=== PATIENT | male | born 1970 | race Caucasian/White ===

== ENCOUNTER 2025-05-07 08:14 | Outpatient (AMB) | payer BC, SELFPAY ==
--- NOTE | 2025-05-07 08:20 | ORTHONT_ITS ---
Vital signs 05/07/25 08:29 Height 1.7 m Height Method Measured Weight 97.607 kg Weight Measurement Method Standing Scale BMI 33.7 BP 138/78 H Blood Pressure Source Automatic Cuff Blood Pressure Location Right Upper Arm Position Sitting Respiration 18 Pulse 91 Pulse Source Monitor Temp 97.1 F Temp Source Temporal Artery Scan Pulse Oximetry (%) 97 Oxygen Delivery Method Room Air Med/Allergies Allergies & Medications Allergies latex Allergy (Severe, Verified 05/07/25 08:40) Rash Medication Reconciliation Pantoprazole Sod * (PROTONIX *) 20 mg PO QDAY ##0 08/02/17 [History Confirmed 05/07/25] sitagliptin phosphate 100 mg tablet (Januvia) 100 mg PO QDAY #0 tabs 08/02/17 [History Confirmed 05/07/25] meloxicam 7.5 mg tablet 7.5 mg PO QDAY #45 tabs 05/07/25 [Rx] Exam Exam Patient is in no acute distress and is cooperative with the examination today. Breathing is nonlabored. In no respiratory distress. Bilateral extremities were evaluated and demonstrates sensation intact to light touch. Palpable pedal pulses are present. No significant edema is present. Bilateral hips were examined. The patient has no pain with log roll of the hips. Internal rotation to 30 degrees and external rotation to 30 degrees is painless. Negative FADIR. The left knee was examined. The left knee is in varus alignment. Range of motion from 0-115 degrees. Knee is stable to varus and valgus as well as AP translation with <5mm. Patient has a negative McMurrays. There is no pain with patellofemoral compression and no crepitus noted. The knee is tender to palpation medially. The right knee was also examined. The right knee is in varus alignment. Range of motion from 0-120 degrees. Knee is stable to varus and valgus as well as AP translation with <5mm. Patient has a negative McMurrays. There is no pain with patellofemoral compression and no crepitus noted. The knee is tender to palpation medially. Assessment and Plan Problem List (1) Degenerative arthritis of knee, bilateral: Status: Acute Plan: Patient is a pleasant 54-year-old male with bilateral knee pain and bilateral knee arthritis. We discussed different treatment options.. I would need to see weightbearing x-rays. We discussed anti-inflammatories and injections. We will get weightbearing x-rays and see him back. Office Procedures GNS Level of Care Nursing/Assessment Patient Status: Initial/New Patient Nursing Assessment/Reassesment: Medication Reconciliation, Update PMH in EMR and Vital Signs Coordination of Care: Complex Care and Chronic Disease 1-5, Education Complex Pt/Fam, Consent,records obtained, informed consent and Staff clarify orders Special Needs: Language special needs New Patient Charge New Patient Point Assignment: 1089 New Patient Point Charge: DIGITAL MEDIA PLANNER Level 3 ([id number]) MA Intake Visit Data Collection New Patient or Established: New Patient (never been to [facility]) Reason for Visit:: LEFT KNEE OSTEOARTHRITIS Seen by Clinical Staff ONLY (RN/MA): No Automatic Furnace Operator Required: No PCP or OBGYN visit in last 3 months: Yes Hx Now: No Do You Feel Safe at Home: Yes Authorities Contacted: N/A Questionairres Past Medical History Past Medical History Have you ever been diagnosed with any of the following: Cardiology Problems Congestive Heart Failure: No Respiratory Problems Chronic Obstructive Pulmonary Disease (COPD): No Stomache/Intestinal Problems Hiatal Hernia: Yes Gastroesophageal Reflux Disease: Yes Genital/Urinary Problems Renal Disease: No Endocrine Problems Diabetes Mellitus Type 1: No Diabetes Mellitus Type 2: Yes Subjective Visit Visit for: new patient and knee Immunization / Flu Flu Vaccine in the Last 12 Months: Yes Flu Vaccine Exclusion Criteria: Already Received History of Present Illness Chief complaint: LEFT KNEE OSTEOARTHRITIS Manpreet is a pleasant 54-year-old male with left knee pain that has been ongoing for quite a while. It has been ongoing for several years. The left knee pain is worse than the right. He works as a transportation maintenance specialist. He has had over 6 injections in the past. He does not have any weightbearing x-rays. He has tried ibuprofen in the past Personal History Occupation: MAINTENANCE Red flag PMH: none BMI Counceling provided: Yes Pain Pain level (0-10): 7 Pain location: outside (lateral) Pain quality: dull and aching Pain timing: night Ambulatory data Ambulatory device: none Treatments Number of previous injections: 6 Improvement with previous injections: Yes Number of Physical Therapy sessions: 1 Improvement with PT: No Improvement with NSAIDS: no Review of Systems Review of Systems: All systems negative unless otherwise noted in HPI.
[2025-05-07 08:29] VITALS: BP 138/78; PULSE 91; RESP 18; TEMP 36.2; O2SAT 97; BMI 33.7
--- NOTE | 2025-05-07 08:42 | XR_ITS ---
Examination: Bilateral knees 2 views Right lateral knee left lateral knee 2 views Bilateral axial knees single view TECHNIQUE: Bilateral AP knees standing single view, bilateral PA knees standing single view flexion Standing right lateral knee left lateral knee 2 views Bilateral axial knees single view total 5 views Date and time: May 07, 2025 0902 hours INDICATIONS: Bilateral knee pain beginning 3 years ago. FINDINGS: Moderate osteopenia. Moderate narrowing medial joint space right knee Moderate to advanced medial joint space left knee No fractures IMPRESSION: Moderate narrowing medial joint space right knee Moderate to advanced medial joint space left knee
== END 2025-05-07 08:50 | disposition home or self-care (01) ==
PROVIDERS: PCP Nurse Practitioner Family; Referring Provider Nurse Practitioner Family; Supervising Provider Orthopaedic Surgery Adult Reconstructive Orthopaedic Surgery; Visit Provider Orthopaedic Surgery Adult Reconstructive Orthopaedic Surgery
DX: M17.0 Bilateral primary osteoarthritis of knee (principal); M25.562 Pain in left knee; M25.561 Pain in right knee; E11.9 Type 2 diabetes mellitus without complications; K21.9 Gastro-esophageal reflux disease without esophagitis
CPT/HCPCS: 73564; 99203; G0463

== ENCOUNTER 2025-05-21 10:01 | Outpatient (AMB) | payer BC, SELFPAY ==
--- NOTE | 2025-05-21 10:08 | ORTHONT_ITS ---
Vital signs 05/21/25 10:11 Height 1.7 m Height Method Stated Weight 100.386 kg Weight Measurement Method Standing Scale BMI 34.7 BP 135/82 H Blood Pressure Source Automatic Cuff Blood Pressure Location Left Upper Arm Position Sitting Respiration 19 Pulse 90 Pulse Source Monitor Temp 97.7 F Temp Source Temporal Artery Scan Pulse Oximetry (%) 95 Oxygen Delivery Method Room Air Med/Allergies Allergies & Medications Allergies latex Allergy (Severe, Verified 05/21/25 10:12) Rash Medication Reconciliation Pantoprazole Sod * (PROTONIX *) 20 mg PO QDAY ##0 08/02/17 [History Confirmed 05/21/25] sitagliptin phosphate 100 mg tablet (Januvia) 100 mg PO QDAY #0 tabs 08/02/17 [History Confirmed 05/21/25] meloxicam 7.5 mg tablet 7.5 mg PO QDAY #45 tabs 05/07/25 [Rx Confirmed 05/21/25] Exam Exam Patient is in no acute distress and is cooperative with the examination today. Breathing is nonlabored. In no respiratory distress. Bilateral extremities were evaluated and demonstrates sensation intact to light touch. Palpable pedal pulses are present. No significant edema is present. Bilateral hips were examined. The patient has no pain with log roll of the hips. Internal rotation to 30 degrees and external rotation to 30 degrees is painless. Negative FADIR. The left knee was examined. The left knee is in varus alignment. Range of motion from 0-115 degrees. Knee is stable to varus and valgus as well as AP translation with <5mm. Patient has a negative McMurrays. There is no pain with patellofemoral compression and no crepitus noted. The knee is tender to palpation medially. The right knee was also examined. The right knee is in varus alignment. Range of motion from 0-120 degrees. Knee is stable to varus and valgus as well as AP translation with <5mm. Patient has a negative McMurrays. There is no pain with patellofemoral compression and no crepitus noted. The knee is tender to palpation medially. Weightbearing x-rays demonstrate complete joint space narrowing of the medial compartment of the left knee. There is moderate arthritis of the right Assessment and Plan Problem List (1) Degenerative arthritis of knee, bilateral: Status: Acute Plan: Patient is a pleasant 54-year-old male with bilateral knee pain and bilateral knee arthritis. We discussed different treatment options. He had good relief with cortisone injections in the left knee's. I did a left knee injection today. Recommend knee cortisone injection as patient would like to proceed with conservative treatment at this time. The risks and benefits of the procedure were reviewed with the patient and patient gave verbal consent to continue with the procedure. Procedure: performed by Dr. Orellana Using sterile technique the left knee was thoroughly prepped with alcohol, and approximately 1 cc of Depo-Medrol 80mg/mL and 4 cc of 0.2% ropivacaine was injected without resistance into the medial tibial femoral joint space. The patient tolerated the procedure. Office Procedures GNS Level of Care Nursing/Assessment Patient Status: Established Patient Nursing Assessment/Reassesment: Medication Reconciliation, Update PMH in EMR and Vital Signs Coordination of Care: Complex Care and Chronic Disease 1-5, Education Complex Pt/Fam, Consent,records obtained, informed consent, Results/Orders obtained and Staff clarify orders Established Patient Charge Established Patient Point Assignment: 95 Established Patient Point Charge: EP Level 3 (80-115) Surgical Proc/IM SQ injection Major Surgical Procedure: Yes (KNEE INJECTION ) Medication Given Medication Given Medication Given: Yes Documented Dose Given: 1 Route: Infiitration Medication Given Medication Given Medication Given: Yes Documented Dose Given: 4 Route: Infiitration Office Meds methylprednisolone acetate 80 mg/mL suspension for injection Performing Provider: Kenneth Orellana MD Performing Location: [facility] Administered by: Kenneth Orellana MD on 05/21/25 10:10 Dose Route Admin Location Dispensed Lot Number Expiration Date [facility] [employer] 80 mg intra-articular KNEE 1 mL [id number] 03/09/27 [address]-4 [facility] ropivacaine (PF) 2 mg/mL (0.2 %) injection solution Performing Provider: Kenneth Orellana MD Performing Location: [facility] Administered by: Kenneth Orellana MD on 05/21/25 10:10 Dose Route Admin Location Dispensed Lot Number Expiration Date [facility] [employer]st 20 mL Infiltration KNEE 20 mL [id number] 08/09/26 29203-283-96 [facility] Intake Visit Data Collection Reason for Visit:: LEFT KNEE OSTEOARTHRITIS/XRAY RESULTS Seen by Clinical Staff ONLY (RN/MA): No Production Dispatcher Required: No PCP or OBGYN visit in last 3 months: Yes Hx Now: No Do You Feel Safe at Home: Yes Authorities Contacted: N/A Questionairres Past Medical History Past Medical History Have you ever been diagnosed with any of the following: Cardiology Problems Congestive Heart Failure: No Respiratory Problems Chronic Obstructive Pulmonary Disease (COPD): No Stomache/Intestinal Problems Hiatal Hernia: Yes Gastroesophageal Reflux Disease: Yes Genital/Urinary Problems Renal Disease: No Endocrine Problems Diabetes Mellitus Type 1: No Diabetes Mellitus Type 2: Yes Subjective Visit Visit for: follow up visit, knee and x-rays Immunization / Flu Flu Vaccine in the Last 12 Months: Yes Flu Vaccine Exclusion Criteria: Already Received History of Present Illness Chief complaint: LEFT KNEE OSTEOARTHRITIS Manpreet is a pleasant 54-year-old male with left knee pain that has been ongoing for quite a while. It has been ongoing for several years. The left knee pain is worse than the right. He works as a facilities maintenance technician. He has had over 6 injections in the past. He has tried ibuprofen in the past Personal History Occupation: MAINTENANCE Red flag PMH: none BMI Counceling provided: Yes Pain Pain level (0-10): 7 Pain location: outside (lateral) Pain quality: dull and aching Pain timing: night Ambulatory data Ambulatory device: none Treatments Number of previous injections: 6 Improvement with previous injections: Yes Number of Physical Therapy sessions: 1 Improvement with PT: No Improvement with NSAIDS: no Review of Systems Review of Systems: All systems negative unless otherwise noted in HPI.
[2025-05-21 10:11] VITALS: BP 135/82; PULSE 90; RESP 19; TEMP 36.5; O2SAT 95; BMI 34.7
== END 2025-05-21 10:31 | disposition home or self-care (01) ==
LOC: HODSRG 10:01
PROVIDERS: PCP Nurse Practitioner Family; Referring Provider Nurse Practitioner Family; Supervising Provider Orthopaedic Surgery Adult Reconstructive Orthopaedic Surgery; Visit Provider Orthopaedic Surgery Adult Reconstructive Orthopaedic Surgery
DX: M17.0 Bilateral primary osteoarthritis of knee (principal); M25.562 Pain in left knee; M25.561 Pain in right knee; K21.9 Gastro-esophageal reflux disease without esophagitis; E11.9 Type 2 diabetes mellitus without complications
CPT/HCPCS: 20610; 99213; J1010; J2795; G0463

== ENCOUNTER → 2025-07-01 | Outpatient (CLI) | payer OTHER, SELFPAY ==
--- NOTE | 2025-07-01 13:33 | XR_ITS ---
EXAMINATION: Ankle, left 3 views . Technique: Ankle AP, oblique, lateral 3 views Date and time of exam: July 01, 2025 1337 hours INDICATIONS: Patient fell today with injury to the ankle, ankle pain. FINDINGS: No fracture or dislocation. No foreign body IMPRESSION: No fracture or dislocation
--- NOTE | 2025-07-01 13:33 | XR_ITS ---
Examination: Ribs, left, order views Technique: Left RIBS AP, RPO, LPO, AP coned lower ribs 4 views Exam date and time: July 01, 2025 1357 hours INDICATIONS: Patient fell today with injury to the left chest, left rib pain Findings: No pneumothorax Adequate bone density No acute rib fractures noted IMPRESSION: No acute rib fractures noted
--- NOTE | 2025-07-01 13:33 | XR_ITS ---
Examination: PA lateral chest 2 views TECHNIQUE: Upright PA lateral chest 2 views Date and time: July 01, 2025 1401 hours INDICATIONS: Patient fell today with injury to the chest, chest pain FINDINGS: Normal heart size. No pneumothorax or pulmonary contusion. Prominent osteopenia IMPRESSION: No pneumothorax pulmonary contusion or hemothorax Please see the left rib series report today
== END | disposition home or self-care (01) ==
PROVIDERS: PCP Family Medicine; Referring Provider Physician Assistant; Visit Provider Physician Assistant
DX: S93.402A Sprain of unspecified ligament of left ankle, initial encounter (principal); S20.302A Unspecified superficial injuries of left front wall of thorax, initial encounter; W19.XXXA Unspecified fall, initial encounter
CPT/HCPCS: 71046; 71101; 73610